=== PATIENT | female | born 2000 | race Caucasian/White ===

== ENCOUNTER 2020-10-08 04:13 | Emergency (ER) | payer OTHER, SELFPAY ==
[2020-10-08 04:16] VITALS: BP 148/94; PULSE 60; RESP 20; TEMP 37.3; O2SAT 99; BMI 20.2
--- NOTE | 2020-10-08 04:27 | ED_ITS ---
HPI - Nausea/Vomiting/Diarrhea General Chief complaint: Nausea/Vomiting/Diarrhea Stated complaint: Vomiting/Sob Time Seen by Provider: 10/08/20 04:27 Source: patient Mode of arrival: ambulatory Limitations: no limitations History of Present Illness HPI Narrative: Patient with history of cyclic vomiting syndrome anxiety goes to hospital almost every month for vomiting disorder on Ativan which she left at [facility] today also she has been vomiting all day. Increased anxiety was tested for COVID last week which was negative MD elicited complaint: nausea and vomiting Pertinent past history: cyclical vomiting Onset (ago): day(s) (1) Description of vomiting: watery Associated nausea: Yes Associated abdominal pain: No Related Data Home Medications Medication Instructions Recorded Confirmed buspirone 15 mg PO BID 10/08/20 10/08/20 clindamycin phosphate [Clindamycin] 1 appl TOPICAL DIRECTED PRN 10/08/20 10/08/20 clonazepam [Klonopin] 1 mg PO BID PRN 10/08/20 10/08/20 lidocaine 1 patch TRANSDERMAL DAILY 10/08/20 10/08/20 lisdexamfetamine [Vyvanse] 10 mg PO QAM 10/08/20 10/08/20 norethindrone-e.estradiol-iron 1 tab PO DAILY 10/08/20 10/08/20 [11/04 ()] sertraline 200 mg PO DAILY 10/08/20 10/08/20 Allergies Allergy/AdvReac Type Severity Reaction Status Date / Time No Known Allergies Allergy Verified 10/08/20 04:24 Review of Systems Constitutional: Constitutional: Reports as per HPI Eyes: Eyes: Reports no additional eye complaints ENT: Reports system reviewed and no additional complaints, except as documented Cardiovascular: Cardiovascular: Reports no additional cardiovascular complaints Respiratory: Respiratory: Reports no additional respiratory complaints Gastrointestinal: Gastrointestinal: Reports no additional gastrointestinal com plaints and Reports nausea Genitourinary: Genitourinary: Reports no additional female genitourinary complaints Musculoskeletal: Musculoskeletal: Reports no additional musculoskeletal complaints Neurologic: Reports system reviewed and no additional complaints, except as documented Psychiatric: Psychiatric: Reports anxiety [facility] Past Medical History Medical History (Updated 10/08/20 @ 06:25 by Danny Garnica MD) Anorexia nervosa with bulimia Anxiety Dysphagia PTSD (post-traumatic stress disorder) Social History Social History Smoking Status: Smoker, status unknown Use of substances other than those prescribed or required for medical reasons: Refusing to respond Advance Directives: No Advance Directives Information Provided: No Physical Exam Vital Signs: Vital Signs: Last Vital Signs Temp 99.1 F 10/08/20 04:16 Pulse 66 10/08/20 04:50 Resp 18 10/08/20 04:50 BP 148/94 H 10/08/20 04:16 Pulse Ox 100 10/08/20 04:50 Body Mass Index 20.2 Appearance: Alert. Oriented X3. No acute distress. Anxious Eyes: Pupils equal, round and reactive to light. ENT: Pharynx normal. Neck: Normal inspection. Neck supple. CVS: Normal heart rate and rhythm. Pulses normal. Respiratory: No respiratory distress. Breath sounds normal. Abdomen: Soft and nontender. Bowel sounds are present, no mass palpable, no CVA tenderness Skin: Skin warm and dry. Normal skin color. Normal skin turgor. Extremities: No lower extremity edema. Neuro: Oriented X 3. No motor deficit. No sensory deficit. MDM - Nausea/Vomiting/Diarrhea MDM Narrative Medical decision making narrative: Patient with cyclic vomiting syndrome after receiving Ativan and IV fluids patient slept very well asking for prescription for Ativan but already she has Klonopin at home patient advised to follow-up with her PCP Lab Data Attestation: I reviewed the patient's lab results. Result diagrams: 10/08/20 04:28 10/08/20 04:28 Labs: Lab Results 10/08/20 10/08/20 Range/Units 04:28 04:28 WBC 9.2 (4.8-10.8) X10*3/uL RBC 4.19 L (4.20-5.50) X10*6/uL Hgb 13.3 (12.0-16.0) g/dl Hct 40.1 (37-47) % MCV 95.7 (80-98) fL MCH 31.7 (27.0-33.0) pg MCHC 33.2 (31.0-35.0) g/dl RDW 12.3 (11.0-16.0) % Plt Count 241 (160-400) X10*3/uL MPV 9.2 L (9.4-12.3) fL Immature Gran % (Auto) 0.1 (0.0-0.4) % Neut % (Auto) 56.0 (45-73) % Lymph % (Auto) 31.2 (20-40) % [place] % (Auto) 9.7 (2-11) % Eos % (Auto) 2.2 (0-4) % Baso % (Auto) 0.8 (0-2) % Lymph # (Auto) 2.9 (1.2-4.9) X10*3/uL [place] # (Auto) 0.9 (0.1-1.2) X10*3/uL Eos # (Auto) 0.2 (0.0-0.4) X10*3/uL Baso # (Auto) 0.1 (0.0-0.2) X10*3/uL Abs Immat Gran (auto) 0.01 (0.00-0.03) X10*3/uL Absolute Neuts (auto) 5.2 (2.0-8.3) X10*3/uL Absolute Nucleated RBC 0.000 (0.0-0.012) X10*3/uL Nucleated RBC % (auto) 0.0 (0.0-0.2) /100WBC Sodium 137 (135-145) mmol/L Potassium 4.1 (3.3-5.1) mmol/l Chloride 104 (96-108) mmol/L Carbon Dioxide 23 (22-29) mmol/L Anion Gap 14 (12-20) BUN 16 (9-16) mg/dL Creatinine 1.01 (0.5-1.4) mg/dL Estim Creat Clear Calc 78.5 Estimated GFR > 60 Random Glucose 126 H (60-115) mg/dL Calcium 9.6 (8.4-10.2) mg/dL Total Bilirubin 0.5 (0.0-1.0) mg/dL Direct Bilirubin 0.2 (0.0-0.5) mg/dL AST 19 (5-31) U/L ALT 11 (0-31) U/L Total Protein 7.6 (6.5-8.0) g/dL Albumin 4.7 (3.5-5.0) g/dL Lipase 21 (8-78) U/L Discharge Plan Discharge Clinical Impression: Cyclic vomiting syndrome Patient Disposition: Home, Self-Care Instructions: Cyclic Vomiting Syndrome (ED) Additional Instructions: Take medication as prescribed by your PCP and follow-up with therapist Prescriptions: No Action clonazepam [Klonopin] 1 mg Tablet 1 mg PO BID PRN (Reason: Anxiety) RF: 0 norethindrone-e.estradiol-iron [Junel FE 11/04 (28)] 1 mg-20 mcg (21)/75 mg (7) Tablet 1 tab PO DAILY RF: 0 lidocaine 5 % Adhesive Patch,Medicated 1 patch transdermal DAILY RF: 0 clindamycin phosphate [Clindamycin] 1 % Swab 1 appl TOPICAL DIRECTED PRN (Reason: Rash) RF: 0 buspirone 15 mg Tablet 15 mg PO BID RF: 0 Vyvanse 10 mg Capsule 10 mg PO QAM RF: 0 sertraline 200 mg PO DAILY RF: 0 Interventions: ED Discharge Assessment Last Done: 10/08/20 06:26
[2020-10-08] MEDS: ondansetron HCL 4 MG/2 ML VIAL IVPUSH (04:32)
[2020-10-08 04:33] LABS: Basophils Absolute Auto 0.1 X10*3/uL (0.0-0.2); Basophils Percent Auto 0.8 % (0-2); Eosinophils Absolute Auto 0.2 X10*3/uL (0.0-0.4); Eosinophils Percent Auto 2.2 % (0-4); Hematocrit 40.1 % (37-47); Hemoglobin 13.3 g/dl (12.0-16.0); Imm Gran Abs Auto 0.01 X10*3/uL (0.00-0.03); Imm Gran Pct Auto 0.1 % (0.0-0.4); Lymphocytes Absolute Auto 2.9 X10*3/uL (1.2-4.9); Lymphocytes Percent Auto 31.2 % (20-40); MANUAL DIFF FLAG NO; Mean Corpuscular HGB Conc 33.2 g/dl (31.0-35.0); Mean Corpuscular Hemoglobin 31.7 pg (27.0-33.0); Mean Corpuscular Volume 95.7 fL (80-98); Mean Platelet Volume 9.2 fL (9.4-12.3); Monocytes Absolute Auto 0.9 X10*3/uL (0.1-1.2); Monocytes Percent Auto 9.7 % (2-11); Neutrophils Absolute Auto 5.2 X10*3/uL (2.0-8.3); Platelet Count 241 X10*3/uL (160-400); Red Blood Count 4.19 X10*6/uL (4.20-5.50); Red Cell Distribution Width 12.3 % (11.0-16.0); White Blood Count 9.2 X10*3/uL (4.8-10.8)
[2020-10-08] MEDS: 0.9 % Sodium Chloride 1,000 ML 999 ML IVCONT (04:34)
[2020-10-08] MEDS: LORazepam 2 MG/ML VIAL 1 MG IVPUSH (04:37)
[2020-10-08 04:50] VITALS: PULSE 66; RESP 18; O2SAT 100
--- NOTE | 2020-10-08 05:11 | PC.NURSE ---
patient had good effect when medicated with zofran and ativan. patient gave okay to give miles updates.
[2020-10-08 05:43] LABS: Alanine Aminotransferase 11 U/L (0-31); Albumin Level 4.7 g/dL (3.5-5.0); Anion Gap 14 (12-20); Aspartate Amino Transferase 19 U/L (5-31); Bilirubin Direct 0.2 mg/dL (0.0-0.5); Bilirubin Total 0.5 mg/dL (0.0-1.0); Blood Urea Nitrogen 16 mg/dL (9-16); Calcium 9.6 mg/dL (8.4-10.2); Carbon Dioxide 23 mmol/L (22-29); Chloride 104 mmol/L (96-108); Creatinine Clr Calc Pharmacy 78.5; Estimated Glomerular Filt Rate > 60; Glucose Random 126 mg/dL (60-115); Lipase 21 U/L (8-78); Potassium 4.1 mmol/l (3.3-5.1); Sodium 137 mmol/L (135-145); Total Protein 7.6 g/dL (6.5-8.0)
--- NOTE | 2020-10-08 06:20 | PC.NURSE ---
pt reports feeling better after medication. patient stated she was okay to go home. ride called.
[2020-10-08 07:31] LABS: Alkaline Phosphatase 43 U/L (39-117)
== END 2020-10-08 06:42 | disposition home or self-care (01) ==
PROVIDERS: Emergency Provider Internal Medicine
DX: R11.15 Cyclical vomiting syndrome unrelated to migraine (principal); F41.9 Anxiety disorder, unspecified; F50.2 Bulimia nervosa; Z76.0 Encounter for issue of repeat prescription; Z79.899 Other long term (current) drug therapy
CPT/HCPCS: 36415; 80048; 80076; 83690; 85025; 96361; 96374; 96375; 99284; J2060; J2405

== ENCOUNTER 2020-10-08 16:25 | Emergency (ER) | payer OTHER, SELFPAY ==
--- NOTE | 2020-10-08 | ECG_ITS ---
Test Reason : CHEST TIGHTNESS Blood Pressure : / mmHG Vent. Rate : 073 BPM Atrial Rate : 073 BPM P-R Int : 112 ms QRS Dur : 080 ms QT Int : 386 ms P-R-T Axes : 065 084 061 degrees QTc Int : 425 ms Normal sinus rhythm Normal ECG No previous ECGs available Referred By: Herbie Deras Electronically Signed By:MIRANDA FREDERICK MD
[2020-10-08 19:06] LABS: MANUAL DIFF FLAG NO
[2020-10-08 19:07] LABS: Basophils Percent Auto 0.1 % (0-2); Hematocrit 38.2 % (37-47); Hemoglobin 12.9 g/dl (12.0-16.0); Imm Gran Abs Auto 0.02 X10*3/uL (0.00-0.03); Imm Gran Pct Auto 0.2 % (0.0-0.4); Lymphocytes Absolute Auto 0.8 X10*3/uL (1.2-4.9); Lymphocytes Percent Auto 8.8 % (20-40); Mean Corpuscular HGB Conc 33.8 g/dl (31.0-35.0); Mean Corpuscular Hemoglobin 31.6 pg (27.0-33.0); Mean Corpuscular Volume 93.6 fL (80-98); Mean Platelet Volume 9.2 fL (9.4-12.3); Monocytes Absolute Auto 0.4 X10*3/uL (0.1-1.2); Monocytes Percent Auto 4.4 % (2-11); Neutrophils Absolute Auto 7.4 X10*3/uL (2.0-8.3); Neutrophils Percent Auto 86.5 % (45-73); Platelet Count 235 X10*3/uL (160-400); Red Blood Count 4.08 X10*6/uL (4.20-5.50); Red Cell Distribution Width 12.2 % (11.0-16.0); White Blood Count 8.6 X10*3/uL (4.8-10.8)
[2020-10-08 19:15] VITALS: BP 136/87; PULSE 70; RESP 16; TEMP 36.9; O2SAT 99; BMI 18.1
[2020-10-08 19:18] LABS: Glucose Urine UA NEG (NEG); Leukocyte Esterase Urine NEG (NEG); Nitrite Urine NEG (NEG); Specific Gravity - Urine >= 1.030 (1.005-1.025); Urine Blood 1+ (NEG); Urine Ketones 40 MG/DL (NEG); Urine Protein TRACE MG/DL (NEG-TRACE)
[2020-10-08 19:21] LABS: Appearance Urine CLEAR; Color Urine YELLOW
[2020-10-08 19:22] LABS: UPreg QC Valid YES; Urine Pregnancy NEGATIVE (NEGATIVE)
[2020-10-08] MEDS: LORazepam 2 MG/ML VIAL 1 MG IVPUSH (19:26)
[2020-10-08] MEDS: 0.9 % Sodium Chloride 1,000 ML 999 ML IV (19:26)
[2020-10-08] MEDS: ondansetron HCL 4 MG/2 ML VIAL IVPUSH ×2 (19:26→20:31)
[2020-10-08 19:40] LABS: Alanine Aminotransferase 11 U/L (0-31); Albumin Level 4.9 g/dL (3.5-5.0); Alkaline Phosphatase 48 U/L (39-117); Anion Gap 16 (12-20); Aspartate Amino Transferase 19 U/L (5-31); Bilirubin Total 0.6 mg/dL (0.0-1.0); Blood Urea Nitrogen 12 mg/dL (9-16); Calcium 9.5 mg/dL (8.4-10.2); Carbon Dioxide 21 mmol/L (22-29); Chloride 101 mmol/L (96-108); Creatinine Clr Calc Pharmacy 81.3; Estimated Glomerular Filt Rate > 60; Glucose Random 102 mg/dL (60-115); Potassium 4.5 mmol/l (3.3-5.1); Sodium 133 mmol/L (135-145); Total Protein 7.8 g/dL (6.5-8.0)
[2020-10-08 19:41] LABS: Bacteria Urine 1+ /LPF; Mucus Urine 1+ /LPF; Squamous Epithelial Cell Urine 1+ /LPF
[2020-10-08 20:00] VITALS: BP 128/80; PULSE 71; RESP 16; TEMP 36.8; O2SAT 98
[2020-10-08 20:03] LABS: Amphetamine Screen Urine POSITIVE (Not Detect); Barbiturates, Urine Not Detected (Not Detect); Benzodiazepines Screen Urine Not Detected (Not Detect); Cannabinoid Screen Urine POSITIVE (Not Detect); Cocaine Screen Urine Not Detected (Not Detect); Opiate Screen Urine Not Detected (Not Detect); Phencyclidine Screen Urine Not Detected (Not Detect)
--- NOTE | 2020-10-08 20:17 | ED.NAVMDI ---
HPI - Nausea/Vomiting/Diarrhea General Chief complaint: Nausea/Vomiting/Diarrhea Stated complaint: chest tightness Time Seen by Provider: 10/08/20 18:26 Source: EMS Mode of arrival: ambulatory Limitations: no limitations History of Present Illness HPI Narrative: 20-year-old female who reports she has a history of cyclic vomiting and anxiety disorder on Klonopin and p.r.n. lorazepam however she is in school at [employer] and is from the [place] area she did not bring her prescription of her anxiety medication with her and during these episodes she requires lorazepam and does not have any. States for the past 2 days has had nausea vomiting unable to keep anything down. There is no abdominal pain. States she will get better and then start not having nausea vomiting again. She used to be a heavy marijuana smoker no longer does. She otherwise denies any fever or chills. No recent travel or sick contacts. MD elicited complaint: nausea and vomiting Pertinent past history: bulimia (States she has been told that she has a eating disorder) Onset (ago): day(s) Associated nausea: Yes Associated abdominal pain: No Severity: moderate Treatment prior to arrival: none Related Data Home Medications Medication Instructions Recorded Confirmed buspirone 15 mg PO BID 10/08/20 10/08/20 clindamycin phosphate [Clindamycin] 1 appl TOPICAL DIRECTED PRN 10/08/20 10/08/20 clonazepam [Klonopin] 1 mg PO BID PRN 10/08/20 10/08/20 lidocaine 1 patch TRANSDERMAL DAILY 10/08/20 10/08/20 lisdexamfetamine [Vyvanse] 10 mg PO QAM 10/08/20 10/08/20 norethindrone-e.estradiol-iron 1 tab PO DAILY 10/08/20 10/08/20 [11/04 (28)] sertraline 200 mg PO DAILY 10/08/20 10/08/20 Previous Rx's Medication Instructions Recorded lorazepam [Ativan] 1 mg PO BID PRN #5 tab 10/08/20 Allergies Allergy/AdvReac Type Severity Reaction Status Date / Time No Known Allergies Allergy Verified 10/08/20 04:24 Review of Systems Review of Systems: Constitutional: No Weight loss, No Fever, No Chills, No Night Sweats, No Fatigue, No Malaise ENT/Mouth: No Hearing loss, No Ear Pain, No Nasal Congestion, No Sinus Pain, No Hoarseness, No sore throat, No Rhinorrhea, No Swallowing Difficulty Eyes: No Eye Pain, No Swelling, No Redness, No Foreign Body, No Discharge, No Vision Changes Cardiovascular: No Chest Pain, No SOB, No Dyspnea on Exertion, No Orthopnea, No Edema, No Palpitations Respiratory: No Cough, No Sputum, No Wheezing, No Smoke Exposure, No Dyspnea Gastrointestinal: As noted in HPI, No Hematochezia, No Melena Genitourinary: no irregular bleeding, No Dysuria, No Urinary Frequency, No Hematuria, No Urinary Incontinence, No Urgency, No Flank Pain, No Urinary Flow Changes, No Hesitancy Musculoskeletal: No joint pain, No Myalgias, No Joint Swelling Skin: No Skin Lesions, No rash Neuro: No Weakness, No Numbness, No Paresthesias, No Loss of Consciousness, No Dizziness, No Headache Psych: No Anxiety/Panic, No Depression, No SI/HI/AH/VH, No Social Issues Heme/Lymph: No Bruising, No Bleeding,No Lymphadenopathy Endocrine: No Polyuria, No Polydipsia, No Temperature Intolerance Yes all other systems are reviewed and are negative Gastrointestinal: Gastrointestinal: Reports nausea PMFSH Past Medical History Medical History (Updated 10/08/20 @ 20:18 by Herbie Deras NP) Anorexia nervosa with bulimia Anxiety Dysphagia PTSD (post-traumatic stress disorder) Social History Social History Smoking Status: Smoker, status unknown Advance Directives: No Advance Directives Information Provided: Yes Physical Exam Vital Signs: Vital Signs: Last Vital Signs Temp 98.4 F 10/08/20 19:15 Pulse 70 10/08/20 19:15 Resp 16 10/08/20 19:15 BP 136/87 10/08/20 19:15 Pulse Ox 99 10/08/20 19:15 Body Mass Index 18.1 Reviewed Const: Other: Anxious appearing General: cooperative Nutritional Appearance: average body habitus HENMT: Head: Yes normal to inspection Ears: hearing grossly normal bilaterally Eyes: General: appearance normal, both eyes and all related structures Visual Rainey: normal visual rainey by confrontation Neck: Neck: Yes normal visual inspection and No tender Thyroid: Thyroid normal Chest: Chest palpation & inspection: normal inspection of the chest Resp: Effort & Inspection: normal respiratory effort Cardio: Jugular venous distension: no JVD Rhythm: regular rhythm Heart sounds: S1 normal heart sound present and S2 normal heart sound present GI: Inspection: Yes normal to inspection Percussion: Yes normal to percussion Auscultation: normal bowel sounds : General: Yes no CVA tenderness Back/Spine/Pelvis: Back: no CVA tenderness Skin: General skin exam: no rashes or lesions noted Extrem: General: Yes normal to inspection Course Course Course Narrative: N essentially no change in labs. Patient received IV fluids and 1 dose of Zofran and 1 mg IV Ativan she was able to sleep and drink 2 cups of water. States she plans to go back to [place] to get her medications tomorrow I will give her a courtesy bridge prescription to hold her off until tomorrow of lorazepam. She is aware this is a courtesy prescription and is essential for her to follow up with her primary care doctor and to get her medications from home. She is well nontoxic appearing. Her abdominal exam is benign. At this point given the stable labs and re-evaluation agreeable no imaging indicated at this time. Will be discharged home with clear precaution return follow-up instructions. Stable for discharge. MDM - Nausea/Vomiting/Diarrhea Lab Data Result diagrams: 10/08/20 19:00 10/08/20 19:00 Labs: Lab Results 10/08/20 10/08/20 10/08/20 Range/Units 19:00 19:00 19:00 WBC 8.6 (4.8-10.8) X10*3/uL RBC 4.08 L (4.20-5.50) X10*6/uL Hgb 12.9 (12.0-16.0) g/dl Hct 38.2 (37-47) % MCV 93.6 (80-98) fL MCH 31.6 (27.0-33.0) pg MCHC 33.8 (31.0-35.0) g/dl RDW 12.2 (11.0-16.0) % Plt Count 235 (160-400) X10*3/uL MPV 9.2 L (9.4-12.3) fL Immature Gran % (Auto) 0.2 (0.0-0.4) % Neut % (Auto) 86.5 H (45-73) % Lymph % (Auto) 8.8 L (20-40) % [place] % (Auto) 4.4 (2-11) % Eos % (Auto) 0.0 (0-4) % Baso % (Auto) 0.1 (0-2) % Lymph # (Auto) 0.8 L (1.2-4.9) X10*3/uL [place] # (Auto) 0.4 (0.1-1.2) X10*3/uL Eos # (Auto) 0.0 (0.0-0.4) X10*3/uL Baso # (Auto) 0.0 (0.0-0.2) X10*3/uL Abs Immat Gran (auto) 0.02 (0.00-0.03) X10*3/uL Absolute Neuts (auto) 7.4 (2.0-8.3) X10*3/uL Absolute Nucleated RBC 0.000 (0.0-0.012) X10*3/uL Nucleated RBC % (auto) 0.0 (0.0-0.2) /100WBC Sodium 133 L (135-145) mmol/L Potassium 4.5 (3.3-5.1) mmol/l Chloride 101 (96-108) mmol/L Carbon Dioxide 21 L (22-29) mmol/L Anion Gap 16 (12-20) BUN 12 (9-16) mg/dL Creatinine 0.87 (0.5-1.4) mg/dL Estim Creat Clear Calc 81.3 Estimated GFR > 60 Random Glucose 102 (60-115) mg/dL Calcium 9.5 (8.4-10.2) mg/dL Total Bilirubin 0.6 (0.0-1.0) mg/dL AST 19 (5-31) U/L ALT 11 (0-31) U/L Alkaline Phosphatase 48 (39-117) U/L Total Protein 7.8 (6.5-8.0) g/dL Albumin 4.9 (3.5-5.0) g/dL Urine Color YELLOW Urine Appearance CLEAR Urine pH 6.0 (5.0-8.0) Ur Specific [place] >= 1.030 H (1.005-1.025) Urine Protein TRACE (NEG-TRACE) MG/DL Urine Glucose (UA) NEG (NEG) MG/DL Urine Ketones 40 (NEG) MG/DL Urine Blood 1+ H (NEG) Urine Nitrite NEG (NEG) Ur Leukocyte Esterase NEG (NEG) Urine RBC 1-4 (0) /HPF Urine WBC 1-4 (0-4) /HPF Ur Squamous Epith Cells 1+ /LPF Urine Bacteria 1+ /LPF Urine Mucus 1+ /LPF Urine Test NEGATIVE (NEGATIVE) Urine Opiates Screen (Not Detect) Ur Barbiturates Screen (Not Detect) Ur Phencyclidine Scrn (Not Detect) Ur Amphetamines Screen (Not Detect) U Benzodiazepines Scrn (Not Detect) Urine Cocaine Screen (Not Detect) U Marijuana (THC) Screen (Not Detect) 10/08/20 Range/Units 19:00 WBC (4.8-10.8) X10*3/uL RBC (4.20-5.50) X10*6/uL Hgb (12.0-16.0) g/dl Hct (37-47) % MCV (80-98) fL MCH (27.0-33.0) pg MCHC (31.0-35.0) g/dl RDW (11.0-16.0) % Plt Count (160-400) X10*3/uL MPV (9.4-12.3) fL Immature Gran % (Auto) (0.0-0.4) % Neut % (Auto) (45-73) % Lymph % (Auto) (20-40) % [place] % (Auto) (2-11) % Eos % (Auto) (0-4) % Baso % (Auto) (0-2) % Lymph # (Auto) (1.2-4.9) X10*3/uL [place] # (Auto) (0.1-1.2) X10*3/uL Eos # (Auto) (0.0-0.4) X10*3/uL Baso # (Auto) (0.0-0.2) X10*3/uL Abs Immat Gran (auto) (0.00-0.03) X10*3/uL Absolute Neuts (auto) (2.0-8.3) X10*3/uL Absolute Nucleated RBC (0.0-0.012) X10*3/uL Nucleated RBC % (auto) (0.0-0.2) /100WBC Sodium (135-145) mmol/L Potassium (3.3-5.1) mmol/l Chloride (96-108) mmol/L Carbon Dioxide (22-29) mmol/L Anion Gap (12-20) BUN (9-16) mg/dL Creatinine (0.5-1.4) mg/dL Estim Creat Clear Calc Estimated GFR Random Glucose (60-115) mg/dL Calcium (8.4-10.2) mg/dL Total Bilirubin (0.0-1.0) mg/dL AST (5-31) U/L ALT (0-31) U/L Alkaline Phosphatase (39-117) U/L Total Protein (6.5-8.0) g/dL Albumin (3.5-5.0) g/dL Urine Color Urine Appearance Urine pH (5.0-8.0) Ur Specific [place] (1.005-1.025) Urine Protein (NEG-TRACE) MG/DL Urine Glucose (UA) (NEG) MG/DL Urine Ketones (NEG) MG/DL Urine Blood (NEG) Urine Nitrite (NEG) Ur Leukocyte Esterase (NEG) Urine RBC (0) /HPF Urine WBC (0-4) /HPF Ur Squamous Epith Cells /LPF Urine Bacteria /LPF Urine Mucus /LPF Urine Test (NEGATIVE) Urine Opiates Screen Not Detected (Not Detect) Ur Barbiturates Screen Not Detected (Not Detect) Ur Phencyclidine Scrn Not Detected (Not Detect) Ur Amphetamines Screen POSITIVE H (Not Detect) U Benzodiazepines Scrn Not Detected (Not Detect) Urine Cocaine Screen Not Detected (Not Detect) U Marijuana (THC) Screen POSITIVE H (Not Detect) Discharge Plan Discharge Clinical Impression: Cyclic vomiting syndrome, Anxiety Patient Disposition: Home, Self-Care Instructions: Acute Nausea and Vomiting (ED), Anxiety (ED) Additional Instructions: Please take medication prescribed You have been provided a courtesy bridge prescription of your lorazepam until you get back home Follow-up with your primary care doctor/psychiatrist as planned Arrange to get him regular medications from back home as discussed Return if any concerns or worsening symptoms Thank you Prescriptions: New lorazepam [Ativan] 1 mg tablet 1 mg PO BID PRN (Reason: anxiety) Qty: 5 RF: 0 No Action clonazepam [Klonopin] 1 mg Tablet 1 mg PO BID PRN (Reason: Anxiety) RF: 0 norethindrone-e.estradiol-iron [June FE 11/04 (28)] 1 mg-20 mcg (21)/75 mg (7) Tablet 1 tab PO DAILY RF: 0 lidocaine 5 % Adhesive Patch,Medicated 1 patch transdermal DAILY RF: 0 clindamycin phosphate [Clindamycin] 1 % Swab 1 appl TOPICAL DIRECTED PRN (Reason: Rash) RF: 0 buspirone 15 mg Tablet 15 mg PO BID RF: 0 Vyvanse 10 mg Capsule 10 mg PO QAM RF: 0 sertraline 200 mg PO DAILY RF: 0 Referrals: Physician,Unknown [Primary Care Provider] - 2 days (Primary care)
== END 2020-10-08 21:45 | disposition home or self-care (01) ==
PROVIDERS: Nurse Practitioner Primary Care; Emergency Provider Emergency Medicine
DX: R11.15 Cyclical vomiting syndrome unrelated to migraine (principal); F41.9 Anxiety disorder, unspecified; Z76.0 Encounter for issue of repeat prescription
CPT/HCPCS: 36415; 80053; 80307; 81001; 81025; 85025; 93005; 96361; 96374; 96375; 96376; 99284; J2060; J2405